=== PATIENT | female | born 1965 | race Caucasian/White ===

== ENCOUNTER 2024-07-06 16:19 | Emergency (ER) | payer SELFPAY ==
[~2024-07-06] VITALS: Ht 175.3 cm; Wt 86.2 kg
[2024-07-06 16:30] VITALS: TEMP 97.9
[2024-07-06] MEDS ORDERED: CLOTRIMAZOLE15 GM TOP (17:07)
[2024-07-06] MEDS ORDERED: AMOX TR-K CLV1 EAC2 PO (17:07)
[2024-07-06] MEDS ORDERED: KETOROLAC TROME10 MG PO (17:19)
[2024-07-06 17:34] VITALS: PULSE 64; RESP 16; O2SAT 96
[2024-07-06] MEDS: AMOXICILLIN/CLAVULANATE K 875 MG TAB PO STA (17:50)
== END 2024-07-06 17:34 | disposition home or self-care (01) ==
LOC: FSED 16:30
DX: R31.9 Hematuria, unspecified (principal); N39.0 Urinary tract infection, site not specified; R10.9 Unspecified abdominal pain; M54.50 Low back pain, unspecified; R21 Rash and other nonspecific skin eruption; Z87.442 Personal history of urinary calculi
CPT/HCPCS: 81003; 87086; 87186; 99283